=== PATIENT | female | born 1990 | race Caucasian/White ===

== ENCOUNTER 2018-08-22 00:21 | Inpatient (IN) | payer BC ==
[2018-08-24] MEDS ORDERED: PROMETHAZINE 25 MG/ML VIAL IV PRN (23:43)
[2018-08-24] MEDS ORDERED: Ringers Lactate 1,000 ML IV PRN (23:43)
[2018-08-24] MEDS ORDERED: CARBOPROST TROME 250 MCG/ML IM PRN (23:43)
[2018-08-24] MEDS ORDERED: BUTORPHANOL 1 MG/ML INJ IV PRN (23:43)
[2018-08-24] MEDS ORDERED: METHYLERGONOVINE 0.2MG/ML AMP IM PRN (23:43)
[2018-08-24] MEDS ORDERED: Ringers Lactate 1,000 ML IV SCH (23:45)
[2018-08-24] MEDS ORDERED: OXYTOCIN/LR 20 UNIT/1,000 ML BAG IV SCH (23:45)
[2018-08-25] MEDS ORDERED: PENICILLIN 5 MU in NA CHLORIDE 0.9% 100 ML IV ONE (01:00)
[2018-08-25] MEDS ORDERED: ZOLPIDEM TARTRATE 5 MG TABLET ONE (01:08)
[2018-08-25 01:23] LABS: RPR Titer ND
[2018-08-25 01:26] LABS: Absolute Lymphocytes (CBC) 1.7 K/uL (0.7-4.9); Eosinophils % 0.6 % (0-4.4); Hematocrit 36.8 % (36.0-45.0); Lymphocytes % 20.6 % (15.3-44.8); Monocytes % 4.5 % (3.3-12.3); RBC Red Blood Cell Count 4.05 M/uL (3.86-4.86)
[2018-08-25 01:27] VITALS: BMI 38.7
[2018-08-25 01:34] LABS: Urine Appearance CLEAR; Urine Blood NEGATIVE (NEG); Urine Color YELLOW; Urine Glucose NEGATIVE (NEG); Urine Protein NEGATIVE (NEG); Urine Specific Gravity >=1.030 (1.005-1.030); Urine Urobilinogen 0.2 mg/dL (0.2-1.0)
[2018-08-25 01:35] LABS: Urine Bilirubin NEGATIVE (NEG)
[2018-08-25 01:43] LABS: Urine Bacteria 20-50 /HPF (<20); Urine Culture Reflex Order REFLEXED; Urine Mucus MOD /HPF (NONE SEEN); Urine RBC NONE SEEN /HPF (NONE SEEN)
[2018-08-25] MEDS ORDERED: PENICILLIN 2.5 MU in NA CHLORIDE 0.9% 100 ML IV SCH (05:00)
[2018-08-25] MEDS ORDERED: FENTANYL CITR 100 MCG/2 ML IV ONE (08:07)
[2018-08-25] MEDS ORDERED: ROPIVACAINE HCL 100 ML IV PRN (08:09)
[2018-08-25] MEDS ORDERED: ROPIVACAINE HCL 0.2% 20ML AMP IV ONE (08:12)
--- NOTE | 2018-08-25 09:40 | P.PN ---
Date of Service: 08/25/18 Patient is a 19-year-old 3 para 2001 at 39 weeks and 5 days gestation who was planned to be admitted today for elective induction of labor however patient presented last night around 11:30 p.m. with contractions and was found to be 3 cm dilated. Patient was therefore kept overnight and admitted for management of labor. Vital signs stable Patient resting in bed moderate distress desires epidural. Vaginal exam: 3 cm dilated, 50% effaced-4 station. Rupture of membranes performed, copious amounts of clear fluid noted. scalp electrode placed patient noted to be 3-4 cm dilated,-2 station. GBS positive. Penicillin 1st doses already been given 2nd dose is due soon. heart pre category 2 tracing baseline is 1 35, moderate variability noted [place] contractions occurring every 3-5 min. Patient is a 27-year-old 3 para 2001 at 39 weeks and 5 days gestation in early labor. GBS positive. Penicillin is being given. Rupture of membranes has been performed. Epidural placement requested. Continuous maternal monitoring be performed.
[2018-08-25] MEDS ORDERED: METHYLERGONOVINE 0.2 MG TAB PO PRN (11:40)
[2018-08-25] MEDS ORDERED: Oxycodone HCl/Acetaminophen 1 TAB TAB PO PRN (11:40)
[2018-08-25] MEDS ORDERED: BISACODYL 10 MG RECTAL SUPP RECT PRN (11:40)
[2018-08-25] MEDS ORDERED: ONDANSETRON 4 MG (ODT) TAB PO PRN (11:40)
[2018-08-25] MEDS ORDERED: DOCUSATE NA/SENNA CONC 1 TAB PO PRN (11:40)
[2018-08-25] MEDS ORDERED: ACETAMINOPHEN 500 MG TAB PO PRN (11:40)
[2018-08-25] MEDS ORDERED: KETOROLAC 30 MG/ML INJ IV PRN (11:43)
[2018-08-25] MEDS ORDERED: LIDOCAINE 1% 20 ML MDV ONE (11:46)
[2018-08-25] MEDS ORDERED: KETOROLAC 30 MG/ML INJ ONE (11:56)
[2018-08-25] MEDS: IBUPROFEN 200 MG TAB PO PRN (19:08)
[2018-08-25] MEDS ORDERED: ZOLPIDEM TARTRATE 5 MG TABLET PO SCH (21:00)
[2018-08-25 23:30] LABS: RPR (Rapid Plasma Reagin) NON-REACT (NON-REACT)
[2018-08-26] MEDS: IBUPROFEN 200 MG TAB PO PRN ×2 (00:33→07:28)
[2018-08-26 06:33] LABS: Absolute Lymphocytes (CBC) 1.8 K/uL (0.7-4.9); Basophils % 0.5 % (0-1.3); Eosinophils % 0.7 % (0-4.4); Hematocrit 33.6 % (36.0-45.0); Lymphocytes % 16.9 % (15.3-44.8); MPV 9.3 fL (7.6-11.3); Monocytes % 4.1 % (3.3-12.3); RBC Red Blood Cell Count 3.69 M/uL (3.86-4.86)
[2018-08-26 11:23] VITALS: BP 123/63; TEMP 97.7
[2018-08-28 01:54] LABS: HBsAG Nonreactive (Nonreactive)
== END 2018-08-26 14:10 | disposition home or self-care (01) | DRG 807 ==
LOC: 2ND-WC 08-24 23:40
PROVIDERS: ADMIT Student in an Organized Health Care Education/Training Program; ATTEND Student in an Organized Health Care Education/Training Program
PROC: 10E0XZZ Delivery of Products of Conception, External Approach (ICD-10-PCS; principal; 2018-08-25)
DX: O99.214 Obesity complicating childbirth (principal); Z37.0 Single live birth; O99.824 Streptococcus B carrier state complicating childbirth; Z3A.39 39 weeks gestation of pregnancy; E66.9 Obesity, unspecified
CPT/HCPCS: 36415; 81001; 85025; 86592; 86901; 87077; 87086; 87088; 87186; 87340; G0433; J2590; J2795; J3010